=== PATIENT | male | born 1970 | race Hispanic/Latino ===

== ENCOUNTER → 2023-12-25 | Day surgery (SDC) | payer BC ==
[~2023-12-25] MED LIST: LIDOCAINE HCL 2% LOCAL INJ 5 ML SDV VIAL INJ ONE; PRAVASTATIN SOD40 MG PO; PROPOFOL IV EMULSION 10 MG/ML 20 ML VIAL ONE; VITAMIN D31 ML
[2023-12-25] MEDS: LACTATED RINGER'S 1,000 ML ONE (10:27)
[2023-12-25 13:16] VITALS: TEMP 97.4
[2023-12-25 13:36] VITALS: BP 119/75; PULSE 55; RESP 18; O2SAT 99
== END | disposition home or self-care (01) ==
LOC: OR 10:03
PROVIDERS: ATTEND Internal Medicine Gastroenterology
DX: K29.50 Unspecified chronic gastritis without bleeding (principal); B96.81 Helicobacter pylori [H. pylori] as the cause of diseases classified elsewhere; K29.80 Duodenitis without bleeding; K20.90 Esophagitis, unspecified without bleeding; K22.89 Other specified disease of esophagus; K21.9 Gastro-esophageal reflux disease without esophagitis; K44.9 Diaphragmatic hernia without obstruction or gangrene; K64.8 Other hemorrhoids; E78.5 Hyperlipidemia, unspecified; Z01.810 Encounter for preprocedural cardiovascular examination; Z79.899 Other long term (current) drug therapy; Z68.30 Body mass index [BMI] 30.0-30.9, adult
CPT/HCPCS: 43239; 93005; J2001; J2704; J7121